=== PATIENT | female | born 2000 | race Caucasian/White ===

== ENCOUNTER 2019-01-30 01:12 | Emergency (ER) | payer BC, OTHER ==
[~2019-01-30] VITALS: Ht 154.9 cm; Wt 81.8 kg
[2019-01-30 01:12] VITALS: BP 137/99
[2019-01-30] MEDS ORDERED: CLOB0.0526 TOP (01:16)
[2019-01-30] MEDS ORDERED: SPRI28TA PO (01:16)
[2019-01-30] MEDS ORDERED: LEXA1TAB PO (01:16)
[2019-01-30] MEDS ORDERED: IBUP-1022 PO (01:31)
[2019-01-30] MEDS ORDERED: AFRI0.058 (01:31)
== END 2019-01-30 01:50 | disposition home or self-care (01) ==
LOC: M ED 01:12
DX: H65.03 Acute serous otitis media, bilateral (principal); J32.9 Chronic sinusitis, unspecified; J30.2 Other seasonal allergic rhinitis; Z79.899 Other long term (current) drug therapy; Z79.3 Long term (current) use of hormonal contraceptives

== ENCOUNTER → 2019-04-21 | Outpatient (CLI) | payer BC, OTHER ==
[~2019-04-21] MED LIST: AFRI0.058; CLOB0.0526 TOP; IBUP-1022 PO; LEXA1TAB PO; SPRI28TA PO
[2019-04-21 18:14] LABS: ALBUMIN 3.2 GM/DL (3.2-5.2); ALT/SGPT 26 U/L (12-78); BILIRUBIN,TOTAL 0.1 MG/DL (0.2-1.0); BLOOD UREA NITROGEN 9 MG/DL (7-18); C REACTIVE PROTEIN QUANTITATIV 0.99 MG/DL (0.00-0.30); CALCIUM LEVEL 9.2 MG/DL (8.5-10.1); CARBON DIOXIDE LEVEL 30 MEQ/L (21-32); CHLORIDE LEVEL 106 MEQ/L (98-107); CREATININE FOR GFR 0.77 MG/DL (0.55-1.30); GLUCOSE, FASTING 94 MG/DL (70-100); POTASSIUM SERUM 3.9 MEQ/L (3.5-5.1); RHEUMATOID FACTOR QUANT < 10.0 IU/ML (<15.0); SODIUM LEVEL 141 MEQ/L (136-145)
[2019-04-21 18:28] LABS: BASO # 0.1 10^3/uL (0.0-0.2); BASO % 0.7 % (0.0-1.0); EOS # 0.1 10^3/uL (0.0-0.50); EOS % 1.2 % (0.0-3.0); HEMATOCRIT 42.9 % (36.0-47.0); HEMOGLOBIN 14.5 g/dl (12.0-15.5); LYMPH # 2.3 10^3/uL (1.5-6.5); LYMPH % 30.4 % (24.0-44.0); MEAN CORPUSCULAR HEMOGLOBIN 31.9 pg (27.0-33.0); MEAN CORPUSCULAR HGB CONC 33.8 g/dl (32.0-36.5); MEAN CORPUSCULAR VOLUME 94.3 fl (80.0-96.0); MONO # 0.6 10^3/uL (0.0-0.8); MONO % 7.8 % (0.0-5.0); NEUTROPHILS # 4.5 10^3/uL (1.8-7.7); NEUTROPHILS % 59.6 % (36.0-66.0); PLATELET COUNT, AUTOMATED 308 10^3/uL (150-450); RED BLOOD COUNT 4.55 10^6/uL (4.00-5.40); WHITE BLOOD COUNT 7.5 10^3/uL (4.0-10.0)
[2019-04-21 18:57] LABS: HIV 1&2 SCREEN CENTAUR NEGATIVE (NEGATIVE)
[2019-04-21 19:03] LABS: ERYTHROCYTE SEDIMENTATION RATE 20 mm/hr (0-20)
--- NOTE | 2019-04-22 02:46 | REP ---
Clinical: Pain. Technique: Four views of the sacroiliac joints. Findings: Sacroiliac joints are symmetric and normal. No arthritic changes are appreciated. Osseous structures are intact. Impression: Normal sacroiliac joints. Electronically Signed by Zak Izquierdo MD 04/22/2019 02:38 A
--- NOTE | 2019-04-22 03:05 | REP ---
Clinical: Bilateral foot pain Technique: AP, lateral, bilateral oblique views right and left foot . Findings: The osseous structures and joint spaces are intact and normal. There is no evidence for acute fracture or dislocation. Surrounding soft tissues are unremarkable. No subcutaneous emphysema or radiodense foreign body. Impression: Normal bilateral foot radiograph series. Electronically Signed by Zak Izquierdo MD 04/22/2019 02:55 A
--- NOTE | 2019-04-22 03:19 | REP ---
Clinical: Bilateral hand pain Technique: AP, lateral, bilateral oblique views right and left hand . Findings: The osseous structures and joint spaces are intact and normal. There is no evidence for acute fracture or dislocation. Surrounding soft tissues are unremarkable. No subcutaneous emphysema or radiodense foreign body. Impression: Normal bilateral hand series. No significant arthritic degenerative changes noted. Electronically Signed by Zak Izquierdo MD 04/22/2019 03:11 A
[2019-04-23 13:05] LABS: HEPATITIS B SURFACE ANTIBODY NEGATIVE (POSITIVE)
[2019-04-23 13:15] LABS: HEPATITIS B SURFACE ANTIGEN NEGATIVE (NEGATIVE)
[2019-04-23 13:44] LABS: HEPATITIS C VIRUS ABY INDEX 0.1 INDEX (<0.8)
[2019-04-29 00:07] LABS: CYCLIC CITRULLINATED PEPTIDE 4 units (0-19); HEPATITIS B CORE ANTIBODY IGG Negative (Negative); HLA-B27 Negative (.)
== END ==
LOC: M LAB 15:24
PROVIDERS: ATTEND Internal Medicine Rheumatology
DX: M25.50 Pain in unspecified joint (principal); L40.9 Psoriasis, unspecified; Z79.899 Other long term (current) drug therapy